=== PATIENT | male | born 1995 ===

== ENCOUNTER 2024-02-23 00:24 | Emergency (ER) | payer OTHER ==
[2024-02-23 00:31] VITALS: RESP 16
[2024-02-23] MEDS: IBUPROFEN 800 MG TAB PO STA (00:53)
[2024-02-23] MEDS: ACETAMINOPHEN TAB 500 MG TAB PO STA (00:54)
[2024-02-23] MEDS: DIPH,PERTUS(ACELL)TETVAC-LF 0.5 ML VIAL IM ONE (00:55)
[2024-02-23] MEDS: BACITRACIN ZINC 500 UNIT/GM OINT 28.4 GM TUBE TOPICAL ONE (01:02)
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
[2024-02-23 02:21] VITALS: TEMP 98.2
[2024-02-23 02:26] VITALS: BP 130/82; PULSE 82
== END 2024-02-23 02:24 | disposition home or self-care (01) ==
LOC: EC 00:24
DX: T21.24XA Burn of second degree of lower back, initial encounter (principal); T22.231A Burn of second degree of right upper arm, initial encounter; T31.0 Burns involving less than 10% of body surface; Z23 Encounter for immunization; X11.8XXA Contact with other hot tap-water, initial encounter; Y99.0 Civilian activity done for income or pay
CPT/HCPCS: 16020; 87636; 90471; 90715; 99283

== ENCOUNTER 2024-02-23 13:37 | Emergency (ER) | payer OTHER ==
[2024-02-23 13:44] VITALS: BP 128/81; PULSE 83; RESP 20; TEMP 98.6
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
[2024-02-23] MEDS: BACITRACIN OINT 1 EACH PACKET TOPICAL ONE (14:06)
== END 2024-02-23 14:23 | disposition home or self-care (01) ==
LOC: EC 13:37
DX: T22.231A Burn of second degree of right upper arm, initial encounter (principal); T21.24XA Burn of second degree of lower back, initial encounter; X11.8XXA Contact with other hot tap-water, initial encounter; Y99.0 Civilian activity done for income or pay
CPT/HCPCS: 99283